=== PATIENT | male | born 1945 | race Caucasian/White ===

== ENCOUNTER 2016-04-21 10:33 | Outpatient (CLI) | payer MEDICARE, OTHER ==
[2016-04-21 10:53] LABS: BASOPHILS % 0.5 (0.0-1.5); EOSINOPHILS % 3.7 % (0.0-6.8); LYMPHOCYTES # 1.7 # k/uL (0.6-4.0); MEAN CORPUSCULAR HEMOGLOBIN 29.2 pg (28.0-34.0); MONOCYTES # 0.3 # k/uL (0.0-0.9); MONOCYTES % 5.4 % (0.0-11.0); NEUTROPHILS # 3.5 # k/uL (1.4-7.7)
[2016-04-21 11:30] LABS: eGFR (African) 43; eGFR (Non-African) 35
== END 2016-04-21 10:34 ==
LOC: LAB 10:33
PROVIDERS: ATTEND Internal Medicine Cardiovascular Disease
DX: I10 Essential (primary) hypertension (principal)
CPT/HCPCS: 36415; 80053; 85025

== ENCOUNTER 2016-12-24 09:45 | Outpatient (CLI) | payer MEDICARE, OTHER ==
[2016-12-24 16:20] LABS: TRANSFERRIN 330 mg/dL (200-360)
[2016-12-24 16:40] LABS: SERUM IRON 47 ug/dL (59-158)
== END 2016-12-24 09:46 ==
LOC: LAB 09:45
PROVIDERS: ATTEND Nurse Practitioner
DX: N18.3 Chronic kidney disease, stage 3 (moderate) (principal); D63.1 Anemia in chronic kidney disease; I10 Essential (primary) hypertension; I25.10 Atherosclerotic heart disease of native coronary artery without angina pectoris; R60.9 Edema, unspecified; E55.9 Vitamin D deficiency, unspecified; Z68.36 Body mass index [BMI] 36.0-36.9, adult
CPT/HCPCS: 36415; 82728; 83540; 83550; 84466

== ENCOUNTER 2017-03-25 10:16 | Outpatient (CLI) | payer MEDICARE, OTHER ==
[2017-03-25 10:36] LABS: BASOPHILS % 1.1 (0.0-1.5); EOSINOPHILS % 3.2 % (0.0-6.8); MEAN CORPUSCULAR HEMOGLOBIN 28.9 pg (28.0-34.0); MEAN CORPUSCULAR VOLUME 89.9 fl (80.0-100.0); MONOCYTES % 4.8 % (0.0-11.0); NEUTROPHILS # 3.4 # k/uL (1.4-7.7)
[2017-03-25 20:00] LABS: SERUM IRON 106 ug/dL (59-158); TRANSFERRIN 272 mg/dL (200-360); VITAMIN D, 25-HYDROXY 60 ng/mL (30-100)
== END 2017-03-25 10:18 ==
LOC: LAB 10:16
PROVIDERS: ATTEND Nurse Practitioner
DX: N18.3 Chronic kidney disease, stage 3 (moderate) (principal); D63.1 Anemia in chronic kidney disease; I10 Essential (primary) hypertension; I25.10 Atherosclerotic heart disease of native coronary artery without angina pectoris; R60.9 Edema, unspecified; E55.9 Vitamin D deficiency, unspecified; Z68.36 Body mass index [BMI] 36.0-36.9, adult
CPT/HCPCS: 36415; 80069; 82306; 82728; 83540; 83550; 84466; 85025

== ENCOUNTER 2017-08-03 08:30 | Outpatient (CLI) | payer MEDICARE, OTHER ==
[2017-08-03 09:08] LABS: BASOPHILS % 0.7 (0.0-1.5); EOSINOPHILS % 2.7 % (0.0-6.8); MEAN CORPUSCULAR HEMOGLOBIN 29.4 pg (28.0-34.0); MEAN CORPUSCULAR VOLUME 89.2 fl (80.0-100.0); MONOCYTES % 4.6 % (0.0-11.0); NEUTROPHILS # 4.2 # k/uL (1.4-7.7)
[2017-08-03 10:33] LABS: APPEARANCE,URINE CLEAR (CLEAR); COLOR,URINE YELLOW (YELLOW); OCCULT BLOOD,URINE NEGATIVE (NEGATIVE); UROBILINOGEN URINE 0.2 Eu (0.2-1.0)
[2017-08-03 18:11] LABS: SERUM IRON 58 ug/dL (59-158); TRANSFERRIN 241 mg/dL (200-360)
[2017-08-04 06:11] LABS: PROTEIN mg/dL 9 mg/dL
== END 2017-08-03 08:32 ==
LOC: LAB 08:30
PROVIDERS: ATTEND Nurse Practitioner
DX: N18.3 Chronic kidney disease, stage 3 (moderate) (principal); E63.1 Imbalance of constituents of food intake; I10 Essential (primary) hypertension; I25.10 Atherosclerotic heart disease of native coronary artery without angina pectoris; E55.9 Vitamin D deficiency, unspecified
CPT/HCPCS: 36415; 80069; 81002; 82306; 82570; 82728; 83540; 83550; 84156; 84466; 85025

== ENCOUNTER 2017-11-27 10:28 | Outpatient (CLI) | payer MEDICARE, OTHER ==
[2017-11-27 17:54] LABS: BASO % 0.7 % (0.0-1.5); LYMPH ABS # 1.76 thou/uL (0.60-4.00); MCH. 29.6 pg (28.0-34.0); MCV 88.1 fL (80.0-100.0); MONOCYTE % 7.1 % (0.0-11.0); MONOCYTE ABS # 0.36 thou/uL (0.00-0.90); PLATELET COUNT 311 thou/uL (130-400)
== END 2017-11-27 10:30 ==
LOC: LAB 10:28
PROVIDERS: ATTEND Nurse Practitioner
DX: N18.3 Chronic kidney disease, stage 3 (moderate) (principal); D63.1 Anemia in chronic kidney disease; I10 Essential (primary) hypertension; I25.10 Atherosclerotic heart disease of native coronary artery without angina pectoris; R60.9 Edema, unspecified; E55.9 Vitamin D deficiency, unspecified; R53.1 Weakness; R42 Dizziness and giddiness
CPT/HCPCS: 36415; 80069; 85025

== ENCOUNTER 2018-04-05 09:28 | Outpatient (CLI) | payer MEDICARE, OTHER ==
[2018-04-05 09:59] LABS: BASOPHILS % 0.5 (0.0-1.5); EOSINOPHILS % 4.3 % (0.0-6.8); MEAN CORPUSCULAR HEMOGLOBIN 29.1 pg (28.0-34.0); MONOCYTES % 6.2 % (0.0-11.0); NEUTROPHILS # 3.4 # k/uL (1.4-7.7)
== END 2018-04-05 09:30 ==
LOC: LAB 09:28
PROVIDERS: ATTEND Nurse Practitioner
DX: N18.3 Chronic kidney disease, stage 3 (moderate) (principal); D63.1 Anemia in chronic kidney disease; I10 Essential (primary) hypertension; I25.10 Atherosclerotic heart disease of native coronary artery without angina pectoris; R60.9 Edema, unspecified; E55.9 Vitamin D deficiency, unspecified
CPT/HCPCS: 36415; 80069; 82728; 83540; 83550; 84466; 85025

== ENCOUNTER 2018-04-22 10:59 | Outpatient (CLI) | payer MEDICARE, OTHER ==
[2018-04-22 11:13] LABS: BASOPHILS % 0.4 (0.0-1.5); MONOCYTES % 5.7 % (0.0-11.0); NEUTROPHILS # 3.4 # k/uL (1.4-7.7)
== END 2018-04-22 11:01 ==
LOC: LAB 10:59
PROVIDERS: ATTEND Nurse Practitioner
DX: N18.3 Chronic kidney disease, stage 3 (moderate) (principal); D63.1 Anemia in chronic kidney disease; I12.9 Hypertensive chronic kidney disease with stage 1 through stage 4 chronic kidney disease, or unspecified chronic kidney disease; I25.10 Atherosclerotic heart disease of native coronary artery without angina pectoris; R60.9 Edema, unspecified; E55.9 Vitamin D deficiency, unspecified; Z68.37 Body mass index [BMI] 37.0-37.9, adult
CPT/HCPCS: 36415; 80069; 84550; 85025

== ENCOUNTER 2018-11-04 12:32 | Outpatient (CLI) | payer MEDICARE, OTHER ==
[2018-11-04 13:06] LABS: BASOPHILS % 0.3 % (0.0-1.5); NEUTROPHILS # 6.3 # k/uL (1.4-7.7)
== END 2018-11-04 12:34 ==
LOC: LAB 12:32
PROVIDERS: ATTEND Nurse Practitioner
DX: I12.9 Hypertensive chronic kidney disease with stage 1 through stage 4 chronic kidney disease, or unspecified chronic kidney disease (principal); N18.3 Chronic kidney disease, stage 3 (moderate); D63.1 Anemia in chronic kidney disease; I25.10 Atherosclerotic heart disease of native coronary artery without angina pectoris; E55.9 Vitamin D deficiency, unspecified; M10.9 Gout, unspecified; I48.91 Unspecified atrial fibrillation
CPT/HCPCS: 36415; 80069; 82728; 83540; 83550; 84466; 84550; 85025

== ENCOUNTER 2018-12-17 10:52 | Outpatient (CLI) | payer MEDICARE, OTHER ==
[2018-12-17 11:34] LABS: eGFR (Non-African) 54
== END 2018-12-17 10:57 ==
LOC: LAB 10:52
PROVIDERS: ATTEND Internal Medicine Cardiovascular Disease
DX: I25.10 Atherosclerotic heart disease of native coronary artery without angina pectoris (principal); I10 Essential (primary) hypertension
CPT/HCPCS: 36415; 80048

== ENCOUNTER 2018-12-24 10:42 | Outpatient (CLI) | payer MEDICARE, OTHER ==
[2018-12-24 11:28] LABS: eGFR (Non-African) > 60
== END 2018-12-24 10:47 ==
LOC: LAB 10:42
PROVIDERS: ATTEND Internal Medicine Cardiovascular Disease
DX: I25.10 Atherosclerotic heart disease of native coronary artery without angina pectoris (principal); I10 Essential (primary) hypertension
CPT/HCPCS: 36415; 80048

== ENCOUNTER 2019-03-04 12:25 | Outpatient (CLI) | payer MEDICARE, OTHER | END 2019-03-04 12:30 | LOC: LAB 12:25 | PROVIDERS: ATTEND Internal Medicine Cardiovascular Disease | DX: Z51.81 Encounter for therapeutic drug level monitoring (principal); Z79.01 Long term (current) use of anticoagulants | CPT/HCPCS: 36415; 85610 ==